=== PATIENT | female | born 1960 | race Caucasian/White ===

== ENCOUNTER → 2023-10-25 13:38 | Outpatient (REF) | payer BC, SELFPAY | LOC: WDC 13:38 | PROVIDERS: ATTENDING PHYSICIAN Emergency Medicine | DX: Z12.31 Encounter for screening mammogram for malignant neoplasm of breast (principal) | CPT/HCPCS: 77063; 77067 ==

== ENCOUNTER → 2023-11-13 09:30 | Outpatient (REF) | payer BC, SELFPAY | LOC: WDC 09:30 | PROVIDERS: ATTENDING PHYSICIAN Emergency Medicine | DX: R92.8 Other abnormal and inconclusive findings on diagnostic imaging of breast (principal) | CPT/HCPCS: 76642 ==

== ENCOUNTER → 2024-10-28 08:19 | Outpatient (REF) | payer BC, SELFPAY | LOC: WDC 08:19 | PROVIDERS: ATTENDING PHYSICIAN Emergency Medicine | DX: Z12.31 Encounter for screening mammogram for malignant neoplasm of breast (principal) | CPT/HCPCS: 77063; 77067 ==

== ENCOUNTER → 2025-01-16 14:31 | Outpatient (REF) | payer BC, SELFPAY | LOC: RAD 14:31 | PROVIDERS: ATTENDING PHYSICIAN Emergency Medicine | DX: M85.80 Other specified disorders of bone density and structure, unspecified site (principal) | CPT/HCPCS: 77080 ==

== ENCOUNTER 2025-04-06 06:22 | Day surgery (SDC) | payer BC, SELFPAY | END 2025-04-06 10:43 | disposition home or self-care (01) | LOC: GI 06:22 | PROVIDERS: ATTENDING PHYSICIAN Internal Medicine; FAMILY PHYSICIAN Emergency Medicine | DX: R12 Heartburn (principal); K22.2 Esophageal obstruction; K20.0 Eosinophilic esophagitis; K22.9 Disease of esophagus, unspecified | CPT/HCPCS: 43239; 88305; 88342 ==

== ENCOUNTER → 2025-05-20 07:57 | Outpatient (REF) | payer BC, SELFPAY | LOC: WDC 07:57 | PROVIDERS: ATTENDING PHYSICIAN Emergency Medicine | DX: R92.343 Mammographic extreme density, bilateral breasts (principal) | CPT/HCPCS: 76641 ==